=== PATIENT | female | born 1990 | race Caucasian/White ===

== ENCOUNTER 2018-09-05 02:43 | Emergency (ER) | payer OTHER ==
[2018-09-05] MEDS ORDERED: HYDROmorphone 1 MG/ML Syringe IVPUSH STA (03:07)
[2018-09-05] MEDS ORDERED: Ondansetron 4 MG/2 ML SDV IVPUSH ONE (03:07)
[2018-09-05] MEDS ORDERED: Sodium Chloride 0.9% 1,000 ML IV SCH (03:15)
[2018-09-05] MEDS ORDERED: Diatrizoate Meglumine/Diatrizoate Sodium 37% 120 ML Bottle PO ONE ×2 (03:16→04:12)
[2018-09-05] MEDS ORDERED: Iopamidol 612 MG/ML 100 ML Bottle IVPUSH ONE ×2 (03:16→04:12)
[2018-09-05] MEDS ORDERED: Iopamidol 612 MG/ML 50 ML SDV IVPUSH ONE ×2 (03:16→04:12)
--- NOTE | 2018-09-05 03:33 | EDM.PDOC ---
ED HPI GENERAL MEDICAL PROBLEM - General Chief Complaint: Abdominal Pain Stated Complaint: RIGHT SIDE PAIN Time Seen by Provider: 09/05/18 02:54 Source of Information: Reports: Patient, RN Notes Reviewed History Limitations: Reports: No Limitations - History of Present Illness INITIAL COMMENTS - FREE TEXT/NARRATIVE: The patient states that she developed right lower quadrant abdominal pain around 2 days ago. It moved periumbilically around 02:00 this morning, when it woke the patient, and has since involved her entire lower abdomen. It is sharp and stabbing in character. It is constant. The patient states that she feels okay if she is supine, but worse with movement or sitting. She does not have dysuria, but her lower abdominal pain is worsened with attempts at urinating. She has had nausea, but no emesis. No recent constipation or diarrhea. No recent fever. No prior similar symptoms. The patient has not taken any iitz-car-dubzrfj or home remedies for her symptoms. Her last oral solid food was around 17:00 yesterday evening. Her LMP was in early July. She states that there is no chance that she could be . The patient does not have a PCP. Her Contact Lens Inspector is Dr. Maguire. Right Lower Abdomen Pain Score (Numeric/FACES): 7 - Related Data Allergies Allergy/AdvReac Type Severity Reaction Status Date / Time No Known Allergies Allergy Verified 09/05/18 03:30 Home Meds: Home Meds Non-Formulary Medication [NF Drug] 1 dose PO DAILY 09/05/18 [History] Sertraline [Zoloft] 100 mg PO DAILY 09/05/18 [History] Past Medical History Musculoskeletal History: Reports: Fracture (left forearm) Psychiatric History: Reports: Anxiety, Depression Oncologic (Cancer) History: Reports: Basal Cell Carcinoma (face) - Past Surgical History HEENT Surgical History: Reports: Oral Surgery (wisdom teeth extraction) Social & Family History - Family History Family Medical History: Noncontributory - Tobacco Use Smoking Status *Q: Never Smoker - Caffeine Use Caffeine Use: Reports: Soda - Alcohol Use Alcohol Use History: No - Recreational Drug Use Recreational Drug Use: No - Living Situation & Occupation Living situation: Reports: Single, Alone 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 ED EXAM, GI/ABD - Physical Exam Exam: See Below Exam Limited By: No Limitations General Appearance: Alert, WD/WN, No Apparent Distress (Appears uncomfortable) Eyes: Bilateral: Normal Appearance, EOMI Ears: Normal External Exam, Hearing Grossly Normal Nose: Normal Inspection Throat/Mouth: Normal Inspection, Normal Lips, Normal Voice, No Airway Compromise Head: Atraumatic, Normocephalic Neck: Normal Inspection, Full Range of Motion Respiratory/Chest: No Respiratory Distress, Lungs Clear, Normal Breath Sounds, No Accessory Muscle Use Cardiovascular: Normal Peripheral Pulses, Regular Rate, Rhythm, No Edema, No Gallop, No JVD, No Murmur, No Rub GI/Abdominal Exam: Soft, No Organomegaly, No Distention, No Abnormal Bruit, No Mass, Tender (Left lower quadrant, suprapubic, right lower quadrant, and far right abdomen, with the greatest tenderness in the left lower quadrant. Nontender elsewhere, but Rovsing sign present.), Abnormal Bowel Sounds ( decreassed), Other (Obturator sign absent. Psoas sign present. Heel drop sign negative.) Back Exam: Normal Inspection, Full Range of Motion. No: CVA Tenderness (L), CVA Tenderness (R) Extremities: Normal Inspection, Normal Range of Motion, No Pedal Edema, Normal Capillary Refill Neurological: Alert, Oriented, Normal Cognition, No Motor/Sensory Deficits Psychiatric: Normal Affect Skin Exam: Warm, Dry, Intact, Normal Color, No Rash Course - Vital Signs Last Recorded V/S: Last Vital Signs Temp 36.1 C 09/05/18 02:48 Pulse 81 09/05/18 02:48 Resp 18 09/05/18 02:48 BP 143/67 H 09/05/18 02:48 Pulse Ox 98 09/05/18 02:48 - Orders/Labs/Meds Orders: Active Orders 24 hr Category Date Time Status Abdomen Pelvis w Cont [CT] Stat Exams 09/05/18 03:07 Taken Sodium Chloride 0.9% [Normal Saline] 1,000 ml Med 09/05/18 03:15 Active IV ASDIRECTED Medication Orders Sodium Chloride (Normal Saline) 1,000 mls @ 150 mls/hr IV ASDIRECTED CARMEN Last Admin: 09/05/18 03:19 Dose: 150 mls/hr Labs: Laboratory Tests 09/05/18 09/05/18 09/05/18 Range/Units 03:10 03:10 05:25 WBC 8.97 (3.98-10.04) K/mm3 RBC 4.62 (3.98-5.22) M/mm3 Hgb 14.1 (11.2-15.7) gm/L Hct 41.3 (34.1-44.9) % MCV 89.4 (79.4-94.8) fl MCH 30.5 (25.6-32.2) pg MCHC 34.1 (32.2-35.5) g/dl RDW Std Deviation 38.9 (36.4-46.3) fL Plt Count 216 (182-369) K/mm3 MPV 10.1 (9.4-12.3) fl Neutrophils % (Manual) 62 H (40-60) % Band Neutrophils % 0 (0-10) % Lymphocytes % (Manual) 26 (20-40) % Atypical Lymphs % 2 % Monocytes % (Manual) 9 (2-10) % Eosinophils % (Manual) 1 (0.7-5.8) % Basophils % (Manual) 0 L (0.1-1.2) Platelet Estimate Adequate Plt Morphology Comment Normal RBC Morph Comment Normal Sodium 139 (136-145) mEq/L Potassium 3.7 (3.5-5.1) mEq/L Chloride 104 (98-107) mEq/L Carbon Dioxide 26 (21-32) mEq/L Anion Gap 12.7 (5-15) BUN 11 (7-18) mg/dL Creatinine 0.9 (0.55-1.02) mg/dL Est Cr Clr Drug Dosing 92.11 mL/min Estimated GFR (MDRD) > 60 (>60) mL/min BUN/Creatinine Ratio 12.2 L (14-18) Glucose 93 (74-106) mg/dL Calcium 8.9 (8.5-10.1) mg/dL Total Bilirubin 0.3 (0.2-1.0) mg/dL AST 16 (15-37) U/L ALT 20 (14-59) U/L Alkaline Phosphatase 73 (46-116) U/L Total Protein 7.2 (6.4-8.2) g/dl Albumin 3.7 (3.4-5.0) g/dl Globulin 3.5 gm/dL Albumin/Globulin Ratio 1.1 (1-2) Urine Color Yellow (Yellow) Urine Appearance Clear (Clear) Urine pH 6.5 (5.0-8.0) Ur Specific Mentcle 1.010 (1.005-1.030) Urine Protein Negative (Negative) Urine Glucose (UA) Negative (Negative) Urine Ketones Negative (Negative) Urine Occult Blood Negative (Negative) Urine Nitrite Negative (Negative) Urine Bilirubin Negative (Negative) Urine Urobilinogen 0.2 (0.2-1.0) Ur Leukocyte Esterase Negative (Negative) Urine RBC Not seen (0-5) /hpf Urine WBC 0-5 (0-5) /hpf Ur Epithelial Cells 0-5 (0-5) /hpf Urine Bacteria Not seen (FEW) /hpf Urine Mucus Not seen (FEW) /hpf Urine HCG, Qual (NEGATIVE) 09/05/18 Range/Units 05:29 WBC (3.98-10.04) K/mm3 RBC (3.98-5.22) M/mm3 Hgb (11.2-15.7) gm/L Hct (34.1-44.9) % MCV (79.4-94.8) fl MCH (25.6-32.2) pg MCHC (32.2-35.5) g/dl RDW Std Deviation (36.4-46.3) fL Plt Count (182-369) K/mm3 MPV (9.4-12.3) fl Neutrophils % (Manual) (40-60) % Band Neutrophils % (0-10) % Lymphocytes % (Manual) (20-40) % Atypical Lymphs % % Monocytes % (Manual) (2-10) % Eosinophils % (Manual) (0.7-5.8) % Basophils % (Manual) (0.1-1.2) Platelet Estimate Plt Morphology Comment RBC Morph Comment Sodium (136-145) mEq/L Potassium (3.5-5.1) mEq/L Chloride (98-107) mEq/L Carbon Dioxide (21-32) mEq/L Anion Gap (5-15) BUN (7-18) mg/dL Creatinine (0.55-1.02) mg/dL Est Cr Clr Drug Dosing mL/min Estimated GFR (MDRD) (>60) mL/min BUN/Creatinine Ratio (14-18) Glucose (74-106) mg/dL Calcium (8.5-10.1) mg/dL Total Bilirubin (0.2-1.0) mg/dL AST (15-37) U/L ALT (14-59) U/L Alkaline Phosphatase (46-116) U/L Total Protein (6.4-8.2) g/dl Albumin (3.4-5.0) g/dl Globulin gm/dL Albumin/Globulin Ratio (1-2) Urine Color (Yellow) Urine Appearance (Clear) Urine pH (5.0-8.0) Ur Specific Mentcle (1.005-1.030) Urine Protein (Negative) Urine Glucose (UA) (Negative) Urine Ketones (Negative) Urine Occult Blood (Negative) Urine Nitrite (Negative) Urine Bilirubin (Negative) Urine Urobilinogen (0.2-1.0) Ur Leukocyte Esterase (Negative) Urine RBC (0-5) /hpf Urine WBC (0-5) /hpf Ur Epithelial Cells (0-5) /hpf Urine Bacteria (FEW) /hpf Urine Mucus (FEW) /hpf Urine HCG, Qual Negative (NEGATIVE) Meds: Medications Generic Name Dose Route Start Last Admin Trade Name Freq PRN Reason Stop Dose Admin Sodium Chloride 1,000 mls @ 150 mls/hr 09/05/18 03:15 09/05/18 03:19 Normal Saline IV 150 mls/hr ASDIRECTED CARMEN Administration Discontinued Medications Generic Name Dose Route Start Last Admin Trade Name Freq PRN Reason Stop Dose Admin Diatrizoate Meglum/Diatrizoate Sod 120 ml 09/05/18 03:16 09/05/18 04:13 Gastrografin 37% PO 09/05/18 03:17 Not Given ONETIME ONE Diatrizoate Meglum/Diatrizoate Sod 120 ml 09/05/18 04:12 09/05/18 04:34 Gastrografin 37% PO 09/05/18 04:13 120 ml ONETIME ONE Administration Diphenhydramine HCl 25 mg 09/05/18 04:26 09/05/18 04:40 Benadryl IVPUSH 09/05/18 04:27 25 mg ONETIME STA Administration Hydromorphone HCl 1 mg 09/05/18 03:07 09/05/18 03:20 Dilaudid IVPUSH 09/05/18 03:08 1 mg ONETIME STA Administration Iopamidol 100 ml 09/05/18 03:16 09/05/18 04:13 Isovue-300 (61%) IVPUSH 09/05/18 03:17 Not Given ONETIME ONE Iopamidol 25 ml 09/05/18 03:16 09/05/18 04:13 Isovue-300 (61%) IVPUSH 09/05/18 03:17 Not Given ONETIME ONE Iopamidol 100 ml 09/05/18 04:12 09/05/18 04:34 Isovue-300 (61%) IVPUSH 09/05/18 04:13 100 ml ONETIME ONE Administration Iopamidol 25 ml 09/05/18 04:12 09/05/18 04:34 Isovue-300 (61%) IVPUSH 09/05/18 04:13 25 ml ONETIME ONE Administration Ondansetron HCl 4 mg 09/05/18 03:07 09/05/18 03:20 Zofran IVPUSH 09/05/18 03:08 4 mg ONETIME ONE Administration - Re-Assessments/Exams Free Text/Narrative Re-Assessment/Exam: 09/05/18 04:26 Notified by Chelsey MAGUIRE that the patient is having some itching in response to the Dilaudid that she received. She has not yet undergone the CT scan. I ordered 25 mg IV Benadryl. 09/05/18 06:24 CT of the abdomen and pelvis with oral and IV contrast is read by Damon as: 1. Free fluid in the cul-de-sac consistent with a recently ruptured ovarian cyst. No current ovarian cyst demonstrated 2. Normal appendix 09/05/18 06:26 Test results discussed with the patient. As above, it appears that the patient' s lower abdominal pain is due to a ruptured ovarian cyst. I will have her take bnpi-din-sroahlz ibuprofen for discomfort. She can follow-up with her Contact Lens Inspector, Dr. Maguire, as needed. She may safely be discharged home. Departure - Departure Time of Disposition: 06:28 Disposition: Home, Self-Care 01 Condition: Good Clinical Impression: Ruptured ovarian cyst - Discharge Information *PRESCRIPTION DRUG MONITORING PROGRAM REVIEWED*: Not Applicable *COPY OF PRESCRIPTION DRUG MONITORING REPORT IN PATIENT ASHLIE: Not Applicable Referrals: Minoo Maguire MD [Primary Care Provider] - Forms: ED Department Discharge Additional Instructions: You were seen in the emergency room for lower abdominal pain over the past 2 days. Workup in the ER included blood work, a urinalysis, a urine test, and a CT scan of your abdomen and pelvis with oral and IV contrast. The CT scan found free fluid in your pelvis, consistent with a recently ruptured ovarian cyst. Your appendix was found to be normal. The remainder of your workup was entirely normal. It appears that your lower abdominal pain is due to a ruptured ovarian cyst. Take [id number] ibuprofen, 2-3 tablets (400-600 mg) every 8 hours, with food, as needed for discomfort. Follow-up with your Contact Lens Inspector, Dr. Maguire, as needed. If any other problems, please do not hesitate to return to the ER. - My Orders Last 24 Hours: My Active Orders 09/05/18 03:07 Abdomen Pelvis w Cont [CT] Stat 09/05/18 03:15 Sodium Chloride 0.9% [Normal Saline] 1,000 ml IV ASDIRECTED - Assessment/Plan Last 24 Hours: My Active Orders 09/05/18 03:07 Abdomen Pelvis w Cont [CT] Stat 09/05/18 03:15 Sodium Chloride 0.9% [Normal Saline] 1,000 ml IV ASDIRECTED
[2018-09-05] MEDS ORDERED: diphenhydrAMINE 50 MG/ML SDV IVPUSH STA (04:26)
--- NOTE | 2018-09-05 14:23 | CT ---
CT abdomen and pelvis Technique: Multiple axial sections were obtained from above the dome of the diaphragm inferiorly through the pubic symphysis. Intravenous contrast and oral contrast was utilized. Oral contrast remains within proximal small bowel and stomach. Delayed images were obtained through the bladder. Comparison: No prior abdominal and pelvic CT study are available. Findings: Small portion of the visualized lung bases show nothing acute. Liver contains no focal abnormality. Spleen appears within normal limits. Adrenal glands show no nodule. Pancreas is within normal limits. Gallbladder contains no calcified gallstones. Kidneys show symmetric contrast enhancement without hydronephrosis or mass. Aorta shows no aneurysm. No retroperitoneal adenopathy or mesenteric abnormalities are seen. Appendix is seen which is normal in size. Small amount of fluid is seen within the cul-de-sac. No adnexal findings are seen on this study. Delayed images show contrast within the bladder. Bone window settings were reviewed which appear within normal limits for the patient's age. Impression: 1. Slight increased fluid within the cul-de-sac. This may relate to nonvisualized cyst rupture or follicle rupture. 2. No additional abnormality is identified on CT study of the abdomen and pelvis. Diagnostic code #2 Agree with preliminary report issued by [facility], preliminary report finalized on 09/05/18, 7:20 AM Central Time
== END 2018-09-05 06:36 | disposition home or self-care (01) ==
LOC: JD.ED 02:43
DX: N83.209 Unspecified ovarian cyst, unspecified side (principal); F41.9 Anxiety disorder, unspecified; F32.9 Major depressive disorder, single episode, unspecified; Z79.899 Other long term (current) drug therapy
CPT/HCPCS: 36415; 74177; 80053; 81001; 81025; 85007; 85027; 96361; 96374; 96375; 99284; J1170; J1200; J2405; J7040; Q9963; Q9967